=== PATIENT | male | born 1960 | race Caucasian/White ===

== ENCOUNTER 2025-04-05 20:32 | Emergency (ER) | payer MEDICARE ==
[~2025-04-05] VITALS: Ht 172.7 cm; Wt 88.6 kg
[2025-04-05 20:35] VITALS: BP 152/93; PULSE 65; O2SAT 96
[2025-04-05] MEDS: HYDROcodone/acetaminophen 10/325mg tab PO ONE (21:11)
[2025-04-05 21:13] LABS: LEUKOCYTE ESTERASE ,URINE NEGATIVE (Neg); NITRITES, URINE NEGATIVE (Neg); OCCULT BLOOD,URINE NEGATIVE (Neg); UA COLLECTION TYPE CLN CATCH MIDSTREAM
[2025-04-05 21:34] LABS: CREATININE 1.37 MG/DL (0.60-1.10); TOTAL CARBON DIOXIDE 24.5 MMOL/L (24-32); eCRCL 51 ML/MIN; eGFR 52 ML/MIN
[2025-04-05 21:41] LABS: MEAN PLATELET VOLUME 7.1 FL (7.4-10.4); RED CELL DISTRIBUTION WIDTH 13.5 % (11.5-14.5)
[2025-04-05 23:03] VITALS: RESP 16
[2025-04-05] MEDS: ketorolac trometh 15mg/ml vial 15 MG/ML ML IM ONE ×2 (23:03→23:04)
--- NOTE | 2025-04-06 00:01 | Physician Documentation ---
History of Present Illness ~ Chief Complaint: Back Pain Stated Complaint: LOW BACK PAIN Time Seen by MD: 20:53 HPI Patient is a 64-year-old gentleman that presents to the emergency department for evaluation of acute onset of left flank pain. Reports that he and his were at a gathering this evening when the pain started. Reports that the pain was so significant that he left to come to the emergency room because the pain was unbearable. Patient's reports that the patient does not normally go to the doctor for anything in his very concerned because he does not complain of pain ever. Patient denies any dysuria fevers nausea vomiting or any other symptoms at this time other than the left-sided flank pain. Patient denies any trauma or known injuries. Medication Reconciliation Allergies: Coded Allergies: No Known Allergies (Unverified , 04/05/25) Review of Systems ROS As stated above in the HPI, otherwise all systems are reviewed and negative. Physical Exam Physical Exam Vital Signs: Temperature: 96.3, Source: Temporal, Heart Rate: 65, Respiratory Rate: 16, BP: 152/93, Pulse Oximetry: 96, Weight: 88.600 Physical Exam VITALS: Reviewed and as above. GENERAL: Alert, no apparent distress. HEENT: Normocephalic, atraumatic, PERRL, EOMI, dry mucosa, no erythema RESPIRATORY: Lungs clear, normal breath sounds, no respiratory distress. CHEST: No accessory muscle use, no retractions CV: Regular rate, rhythm, no edema, no murmur, No: JVD GI: Soft, non-tender, bowels sounds present, no rebound, guarding, or rigidity BACK: Positive CVA tenderness, or swelling MUSCULOSKELETAL No deformities, no edema, significant left-sided flank pain positive CVA SKIN: Warm and dry, no rash NEURO: Oriented x4, No motor or sensory deficit PSYCH: Normal mood and affect, no agitation Progress Results/Orders Results/Orders Orders - NANCIE VELIZ APPLICATION LEAD Ultrasound Kidney Non Vasc (04/05/25 ) Completed Orders - NANCIE VELIZ APPLICATION LEAD Urinalysis (04/05/25 20:43) Hydrocodone/Apap 10/325 (Rhododendron 10/325mg (04/05/25 21:05) CMP (04/05/25 21:06) Cbc/Diff (04/05/25 21:21) Ultrasound Kidney Non Vasc (04/05/25 ) Ketorolac Trometh 15mg/Ml Vial (Toradol (04/05/25 22:50) Ketorolac Trometh 15mg/Ml Vial (Toradol (04/05/25 22:55) Medications Received in ER Medications (Trade) Dose Ordered Sig/Emy Route PRN Reason Start Time Stop Time Status Last Admin Dose Admin (Rhododendron 10/325mg tab) 1 tab ONCE ONCE PO 04/05/25 21:05 04/05/25 21:06 DC 04/05/25 21:11 1 TAB (Toradol injection) 30 mg ONCE ONCE IM 04/05/25 22:50 04/05/25 22:51 DC 04/05/25 23:03 30 MG Vital Signs 04/05/25 04/05/25 04/05/25 04/05/25 20:35 21:11 22:02 23:03 Temp 96.3 Pulse 65 Resp 15 16 16 16 B/P (MAP) 152/93 Pulse Ox 96 Laboratory Tests Test 04/05/25 21:01 04/05/25 21:14 Urine Specimen Description Cln catch midstream Urine Color Yellow Urine Clarity Clear Urine pH 5.5 Urine Specific [place] 1.025 Urine Protein Negative Urine Glucose (UA) Negative Urine Ketones Trace H Urine Occult Blood Negative Urine Nitrite Negative Urine Bilirubin Negative Urine Urobilinogen 0.2 Urine Leukocyte Esterase Negative Volume Urine Centrifuged 10 ml Urine Comment White Blood Count 7.6 Red Blood Count 4.82 Hemoglobin 14.7 Hematocrit 42.7 Mean Corpuscular Volume 88.7 Mean Corpuscular Hemoglobin 30.5 Mean Corpuscular Hemoglobin Concent 34.3 Red Cell Distribution Width 13.5 Platelet Count 217 Mean Platelet Volume 7.1 L Neutrophils (%) (Auto) 61.1 Lymphocytes (%) (Auto) 27.0 Monocytes (%) (Auto) 9.1 Eosinophils (%) (Auto) 1.8 Basophils (%) (Auto) 1.0 Neutrophils # (Auto) 4.6 Lymphocytes # (Auto) 2.0 Monocytes # (Auto) 0.7 Eosinophils # (Auto) 0.1 Basophils # (Auto) 0.1 CBC Comment Sodium Level 140 Potassium Level 4.0 Chloride Level 105 Carbon Dioxide Level 24.5 Anion Gap 11 Blood Urea Nitrogen 19 H Creatinine 1.37 H Estimated GFR/1.73 m2 52 BUN/Creatinine Ratio 13.9 Glucose Level 139 H Calcium Level 8.8 Total Bilirubin 0.6 Aspartate Amino Transf (AST/SGOT) 21 Alanine Aminotransferase (ALT/SGPT) 27 Alkaline Phosphatase 56 Total Protein 7.2 Albumin 3.7 Globulin 3.5 Albumin/Globulin Ratio 1.1 Chemistry Comments Medical Decision Making Findings Patient presents with flank pain likely secondary to renal colic from likely non-obstructed non infected kidney stone. Given history, exam, and work up I have low suspicion for atypical appendicitis, genital torsion, acute cholecystitis, AAA, infected obstructed stone, pyelonephritis, or other emergent intraabdominal pathology. Symptoms and UA indicate no infection. BMP witohut evidence of LESLIE. Pain treated in ED with Rhododendron and Toradol. Patient appropriate for discharge with outpatient follow-up and Rhododendron for pain. Patient will follow up with his primary care provider. Patient provided with strict return precautions. Differential Dx:Considerations: Include: AAA, Aortic dissection, Appendicitis, Bowel obstruction, Cholelithiasis, Cholangitis, DJD, Fracture, Hepatitis, HNP, Musculoskeletal pain, Pancreatitis, Pyelonephritis, Renal infarction, Strain, Urinary obstruction, Urolithiasis, Urinary tract infection, Other Departure Disposition: 01 HOME / SELF CARE / HOMELESS Impression: Primary Impression: Flank pain, acute Discharge Instructions: Flank Pain, Adult, [id number] Additional Instructions: Patient presents with flank pain likely secondary to renal colic from likely non-obstructed non infected kidney stone. Given history, exam, and work up I have low suspicion for atypical appendicitis, genital torsion, acute cholecystitis, AAA, infected obstructed stone, pyelonephritis, or other emergent intraabdominal pathology. Symptoms and UA indicate no infection. BMP witohut evidence of LESLIE. Pain treated in ED with Rhododendron and Toradol. Patient appropriate for discharge with outpatient follow-up and Rhododendron for pain. Please take medication as prescribed. Please follow up with her primary care provider. Please return to the emergency department if you have any worsening or recurrent symptoms or any additional concerning symptoms that we discussed here in the emergency department today. Referrals: NO PRIMARY CARE PROVIDER (PCP) Prescriptions Hydrocodone Bit/Acetaminophen 5/325 MG (Rhododendron 5/325 MG) 5 Mg/325 Mg Tablet 1-2 TAB PO Q6H PRN for pain for 3 Days, #24 TAB Prov: NANCIE VELIZ 04/06/25 Education Educated: Patient Educated regarding: diagnosis, treatment, need for follow up Signature Scribe Signature: A Attestation: Scribed for Nancie Veliz by CLARY Calles . 04/06/25 00:02 NANCIE VELIZ Apr 06, 2025 00:01
--- NOTE | 2025-04-06 00:13 | RADIOLOGY REPORT ---
INDICATION: Acute pain, CVA tenderness TECHNIQUE: Multiple real-time sonographic images of the kidneys and bladder were obtained. COMPARISON: None FINDINGS: The right kidney measures 12.1 cm in length, which is normal in size. There is normal echog enicity of the right kidney. No hydronephrosis. The left kidney measures 13.3 cm in length, which is normal in size. There is normal echogenicity of the left kidney. There is trace hydronephrosis of the left kidney. No large intraluminal masses are seen in the bladder. The bladder volume measures 262 cc at the time of the study. The ureteral jets are not seen during this study. IMPRESSION: Trace hydronephrosis of the left kidney. This may be secondary to the distended urinary bladder. If t here is concern for a ureteral calculus causing obstruction, CT of the abdomen and pelvis is recommen ded.
[2025-04-06] MEDS ORDERED: HYDR-3965 PO (00:21)
[2025-04-06 00:39] VITALS: TEMP 96.3
== END 2025-04-06 00:41 | disposition home or self-care (01) ==
LOC: ER 20:33
DX: R10.9 Unspecified abdominal pain (principal)
CPT/HCPCS: 36415; 76770; 80053; 81003; 85025; 96372; 99285; J1885